=== PATIENT | female | born 1935 | race Caucasian/White ===

== ENCOUNTER 2017-07-02 12:23 | Day surgery (SDC) | payer OTHER ==
[~2017-07-02] VITALS: Ht 152.4 cm; Wt 68.6 kg
[~2017-07-02 12:23] MED LIST: ASPIR-TRIN325 M1 PO; CENTRUM ULTRA1 EAC1 PO; CEPHALEXIN500 MG PO; CHILD ASPIRIN81 M1 PO; DIOVAN HCT 81 TABLET PO; DIOVAN160 MG PO; FISH OIL + VIT1 EACH PO; GLUCOSAMINE &1 EAC1 PO; MECLIZINE HCL25 MG PO; NITROSTAT0.4 MG SL; NORVASC2.5 MG PO; PRAVACHOL40 MG PO; SYSTANE ULTRA 015 ML BOTH EYES; TYLENOL EXTRA500 MG PO; VISKEN5 MG PO; VITAMIN D31000 UNI2 PO; ZANTAC150 MG PO
[2017-07-02 13:08] VITALS: BP 140/81
[2017-07-02 17:26] VITALS: BP 177/80
[2017-07-02 20:33] VITALS: BP 139/60
[2017-07-03 00:01] VITALS: BP 110/56
[2017-07-03 04:39] VITALS: BP 135/61
[2017-07-03 07:35] VITALS: BP 134/59
[2017-07-03] MEDS ORDERED: ASPIR-LOW81 MG PO (08:14)
[2017-07-03] MEDS ORDERED: NORCO 5/3251 TABLET PO (11:02)
== END 2017-07-03 11:35 | disposition home or self-care (01) ==
LOC: SDC 12:23 → ENRESERV 15:50 → 2SOUTH 15:51 → 3EAST 15:51 → ENRESERV 15:52 → 3EAST 17:06
PROC: 0RRJ0J7 Replacement of Right Shoulder Joint with Synthetic Substitute, Glenoid Surface, Open Approach (ICD-10-PCS; principal; 2017-07-02)
DX: M19.011 Primary osteoarthritis, right shoulder (principal); M25.711 Osteophyte, right shoulder; I10 Essential (primary) hypertension; Z79.82 Long term (current) use of aspirin
CPT/HCPCS: 94799; C1713; G0378; J0131; J0690; J1100; J2405; J2795; J3010; J7030; J7050

== ENCOUNTER 2017-08-24 13:48 | Emergency (ER) | payer OTHER ==
[~2017-08-24] VITALS: Ht 154.9 cm; Wt 63.6 kg
[~2017-08-24 13:48] MED LIST changes: +ASPIR-LOW81 MG PO; +NORCO 5/3251 TABLET PO
[2017-08-24 16:06] VITALS: BP 165/67
== END 2017-08-24 16:12 | disposition home or self-care (01) ==
LOC: EME 13:48
DX: S76.012A Strain of muscle, fascia and tendon of left hip, initial encounter (principal); X58.XXXA Exposure to other specified factors, initial encounter; I10 Essential (primary) hypertension; Z91.040 Latex allergy status
CPT/HCPCS: 73502; 99281; 99284

== ENCOUNTER 2017-09-10 13:29 | Inpatient (IN) | payer OTHER ==
[~2017-09-10] VITALS: Ht 152.4 cm; Wt 62.0 kg
[~2017-09-10 13:29] MED LIST changes: +CENTRUM SILVER1 EAC4 PO; -CENTRUM ULTRA1 EAC1 PO; -FISH OIL + VIT1 EACH PO; +FISH OIL 1,2001 EAC4 PO; -ZANTAC150 MG PO
[2017-09-10 18:29] LABS: BASOPHIL (%) 0.8 % (0-1); BASOPHIL COUNT 0.1 K/uL (0-0.1); EOSINOPHIL (%) 1.1 % (0-5); EOSINOPHIL COUNT 0.1 K/uL (0-0.3); HEMOGLOBIN 14.6 G/DL (11.9-15.5); IMMATURE GRANULOCYTE (%) 0.3 % (0.0-0.7); LYMPHOCYTE (%) 21.4 % (15-42); LYMPHOCYTE COUNT 1.9 K/uL (1.0-2.8); MCH 31.8 PG (29.0-34.0); MCHC 34.8 G/DL (30.0-36.0); MCV 91.5 FL (83-99); MONOCYTE (%) 9.9 % (3-12); MONOCYTE COUNT 0.9 K/uL (0-0.8); NEUTROPHIL (%) 66.5 % (45-76); NEUTROPHIL COUNT 5.9 K/uL (1.8-6.4); PLATELET COUNT 210 K/uL (156-360); RBC DIS.WIDTH-CV 12.3 % (11.8-14.6); RBC DIS.WIDTH-SD 40.8 % (39-53); RED BLOOD COUNT 4.59 M/uL (3.80-5.20); WHITE BLOOD COUNT 8.9 K/uL (4.1-10.2)
[2017-09-10 18:37] LABS: ALBUMIN 4.4 g/dL (3.2-4.8); CHLORIDE 104 mEq/L (99-109); POTASSIUM 4.3 mEq/L (3.7-5.4); SODIUM 142 mEq/L (136-147)
[2017-09-10 18:38] LABS: MAGNESIUM 2.4 mg/dL (1.3-2.7)
[2017-09-10 18:40] LABS: GLUCOSE 97 mg/dL (70-99)
[2017-09-10 18:42] LABS: TOTAL BILIRUBIN 0.7 mg/dL (0.0-1.0)
[2017-09-10 18:43] LABS: ALKALINE PHOSPHATASE 80 IU/L (3-129)
[2017-09-10 18:44] LABS: CREATININE 1.2 mg/dL (0.6-1.3); GFR ESTIMATE (CALCULATED) 46 mL/min/
[2017-09-10 18:45] LABS: AST (GOT) 20 IU/L (2-34); UREA NITROGEN (BUN) 20 mg/dL (9-23)
[2017-09-10 18:46] LABS: ALT (GPT) 18 IU/L (3-49)
[2017-09-10] MEDS ORDERED: LO-DOSE ASPIRIN81 M2 PO (19:39)
[2017-09-10] MEDS ORDERED: ZANTAC150 MG PO (19:42)
[2017-09-10 21:55] VITALS: BP 135/62
[2017-09-10 23:29] VITALS: BP 115/59
[2017-09-11 05:38] LABS: HEMOGLOBIN 13.2 G/DL (11.9-15.5); MCH 31.6 PG (29.0-34.0); MCHC 33.8 G/DL (30.0-36.0); MCV 93.3 FL (83-99); PLATELET COUNT 196 K/uL (156-360); RBC DIS.WIDTH-CV 12.4 % (11.8-14.6); RBC DIS.WIDTH-SD 42.3 % (39-53); RED BLOOD COUNT 4.18 M/uL (3.80-5.20); WHITE BLOOD COUNT 7.5 K/uL (4.1-10.2)
[2017-09-11 06:49] LABS: CHLORIDE 107 MEQ/L (99-109); CREATININE 1.2 MG/DL (0.6-1.3); GFR ESTIMATE (CALCULATED) 46 mL/min/; GLUCOSE 95 mg/dL (70-99); HDL CHOLESTEROL 46 MG/DL (Desirable>=50); LDL CHOLESTEROL 114 mg/dL (Desirable<100); NON-HDL CHOLESTEROL 143 mg/dL (Desirable<160); SODIUM 143 MEQ/L (136-147); TOTAL CHOLESTEROL 189 mg/dL (Desirable<200); TRIGLYCERIDES 147 MG/DL (Normal: <150); UREA NITROGEN (BUN) 24 mg/dL (9-23)
[2017-09-11 07:39] VITALS: BP 138/66
[2017-09-11 11:11] VITALS: BP 141/65
[2017-09-11 15:30] VITALS: BP 117/57
[2017-09-11 20:00] VITALS: BP 115/58
[2017-09-12] VITALS (7 sets, daily range): BP systolic 124–212; BP diastolic 61–98
[2017-09-13 04:15] VITALS: BP 138/63
[2017-09-13 07:26] VITALS: BP 150/65
[2017-09-13 09:27] VITALS: BP 101/69
[2017-09-13 11:04] VITALS: BP 100/50
[2017-09-13] MEDS ORDERED: TIZANIDINE HCL2 MG PO (12:15)
== END 2017-09-13 14:22 | DRG 553 ==
LOC: EME 13:29 → 5WEST 20:04 → EDOF 20:04 → ENRESERV 20:05 → 5WEST 21:37
PROVIDERS: Emergency Medicine; Nurse Practitioner Adult Health
DX: M17.12 Unilateral primary osteoarthritis, left knee (principal); G92 Toxic encephalopathy; T40.605A Adverse effect of unspecified narcotics, initial encounter; G89.29 Other chronic pain; M76.02 Gluteal tendinitis, left hip; I12.9 Hypertensive chronic kidney disease with stage 1 through stage 4 chronic kidney disease, or unspecified chronic kidney disease; N18.3 Chronic kidney disease, stage 3 (moderate); E78.5 Hyperlipidemia, unspecified; I25.10 Atherosclerotic heart disease of native coronary artery without angina pectoris; Z96.611 Presence of right artificial shoulder joint; Z79.82 Long term (current) use of aspirin; Z91.040 Latex allergy status
CPT/HCPCS: 73564; 73721; 80048; 80053; 80061; 83735; 85025; 85027; 93971; 97530 GO; 99281; 99285; G0378; J1650; J3010; J7030